=== PATIENT | female | born 1995 | race Caucasian/White ===

== ENCOUNTER 2019-09-08 08:05 | Emergency (ER) | payer SELFPAY ==
[~2019-09-08] VITALS: Ht 149.9 cm; Wt 48.0 kg
[2019-09-08 08:53] LABS: BASOPHILS # (AUTO) 0.04 x10^3/uL (0-0.1); BASOPHILS % (AUTO) 0 % (0-1); EOSINOPHILS # (AUTO) 0.11 x10^3/uL (0-0.4); EOSINOPHILS % (AUTO) 1 % (1-7); LYMPHOCYTES # (AUTO) 2.44 x10^3/uL (1-3.4); LYMPHOCYTES % (AUTO) 25 % (22-44); MD NO; MEAN CORPUSCULAR HEMOGLOBIN 30.8 pg (27.0-34.8); MEAN CORPUSCULAR HGB CONC 32.7 g/dL (32.4-35.8); MEAN CORPUSCULAR VOLUME 94.2 fL (80-100); MEAN PLATELET VOLUME 8.6 fL (7.4-10.4); MONOCYTES # (AUTO) 0.64 x10^3/uL (0.2-0.8); MONOCYTES % (AUTO) 7 % (2-9); NEUTROPHILS # (AUTO) 6.57 x10^3/uL (1.8-6.8); NEUTROPHILS % (AUTO) 67 % (42-75); PLATELET COUNT 203 x10^3/uL (130-400); RED BLOOD COUNT 4.67 x10^6/uL (3.82-5.3); RED CELL DISTRIBUTION WIDTH 13.2 % (9.6-15.2)
[2019-09-08 09:02] LABS: ANION GAP 5 mmol/L (5-15); CALCIUM 9.1 mg/dL (8.5-10.1); CHLORIDE 111 mmol/L (98-107); CREATININE 0.74 mg/dL (0.55-1.02)
--- NOTE | 2019-09-08 09:42 | NUR ---
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
[2019-09-08] MEDS ORDERED: HYDROmorphone 1 MG/ML, 1ML INJ ONE (09:58)
[2019-09-08] MEDS ORDERED: ONDANSETRON 2MG/ML, 2ML ONE (09:59)
[2019-09-08] MEDS ORDERED: PLEASE ENTER ALLERGIES MC SCH (10:00)
[2019-09-08] MEDS ORDERED: ONDANSETRON 2MG/ML, 2ML IVPush ONE (10:00)
[2019-09-08] MEDS ORDERED: SODIUM CHLORIDE FLUSH 10ML SYR IVF ONE (10:00)
[2019-09-08] MEDS ORDERED: HYDROmorphone 2 MG/ML, 1ML IVPush PRN (10:00)
--- NOTE | 2019-09-08 10:09 | NUR ---
ACCORDING TO VINCE BACA, PATIENT DOESN'T WANT TV PELVIS ULTRASOUND. PHUONG IS GOING TO DISCUSS WITH PROVIDER IF THIS EXAM SHOULD BE CANCEL.
--- NOTE | 2019-09-08 10:16 | NUR ---
OLGA TRIVEDI NOTIFIED OF PT REFUSING US, PA SPOKE WITH PT AND PT NOW AGREEING TO US AT THIS TIME. US NOTIFIED
--- NOTE | 2019-09-08 11:15 | NUR ---
PT UNABLE TO PRODUCE URINE SPECIMEN AFTER 2X ATTEMPTS, PA NOTIFIED. OK TO HOLD UA AT THIS TIME
[2019-09-08 11:20] VITALS: BP 92/52
== END 2019-09-08 12:22 | disposition home or self-care (01) ==
LOC: ED 10:08
DX: N83.02 Follicular cyst of left ovary (principal); N83.01 Follicular cyst of right ovary; R11.2 Nausea with vomiting, unspecified; R10.30 Lower abdominal pain, unspecified
CPT/HCPCS: 36415; 76830; 80048; 82040; 84703; 85025; 96374; 96375; 99284; J1170; J2405